=== PATIENT | male | born 1960 | race Caucasian/White ===

== ENCOUNTER 2025-03-31 06:19 | Day surgery (SDC) | payer OTHER, SELFPAY | END 2025-03-31 09:01 | disposition home or self-care (01) | LOC: GI 06:19 | PROVIDERS: ATTENDING PHYSICIAN Internal Medicine Gastroenterology | DX: Z12.11 Encounter for screening for malignant neoplasm of colon (principal); K57.30 Diverticulosis of large intestine without perforation or abscess without bleeding; K64.0 First degree hemorrhoids | CPT/HCPCS: G0121 ==

== ENCOUNTER 2025-09-24 06:33 | Outpatient (RCR) | payer OTHER, SELFPAY | END 2025-09-24 23:59 | disposition home or self-care (01) | LOC: ROT 06:33 | PROVIDERS: ATTENDING PHYSICIAN Orthopaedic Surgery; FAMILY PHYSICIAN Physician Assistant | DX: Z47.89 Encounter for other orthopedic aftercare (principal); M72.0 Palmar fascial fibromatosis [Dupuytren]; Z73.6 Limitation of activities due to disability | CPT/HCPCS: 97760 ==